=== PATIENT | male | born 1975 | race African-American/Black ===

== ENCOUNTER 2018-08-13 18:41 | Emergency (ER) | payer MEDICARE, OTHER ==
[2018-08-13] MEDS: HYDROCODONE/APAP (10/325) TAB PO (20:10)
[2018-08-13] MEDS: KETOROLAC 30 MG INJ IM (20:11)
== END 2018-08-13 21:11 | disposition left against medical advice (07) ==
LOC: E/R 18:41
DX: G89.18 Other acute postprocedural pain (principal); J44.9 Chronic obstructive pulmonary disease, unspecified; F17.210 Nicotine dependence, cigarettes, uncomplicated
CPT/HCPCS: 96372; 99284-25